=== PATIENT | male | born 1960 | race Caucasian/White ===

== ENCOUNTER → 2017-11-19 | Emergency (ER) | payer MEDICAID ==
[~2017-11-19] VITALS: Ht 175.3 cm; Wt 72.6 kg
[2017-11-19 00:10] VITALS: BP 150/79
[2017-11-19 00:43] LABS: BASOPHILS # (AUTO) 0.1 /CMM (0.0-0.2); BASOPHILS % (AUTO) 0.6 % (0.0-2.0); EOSINOPHILS # (AUTO) 0.1 /CMM (0.0-0.7); EOSINOPHILS % (AUTO) 1.1 % (0.0-6.0); HEMATOCRIT 40 % (39-51); HEMOGLOBIN 13.7 g/dL (13.5-17.5); LYMPHOCYTES # (AUTO) 2.2 /CMM (0.8-4.8); LYMPHOCYTES % (AUTO) 25.6 % (20.0-44.0); MEAN CORPUSCULAR HEMOGLOBIN 30 PG (26.0-33.0); MEAN CORPUSCULAR HGB CONC 34 g/dl (31.0-36.0); MEAN CORPUSCULAR VOLUME 89 fL (80-96); MONOCYTES # (AUTO) 0.8 /CMM (0.1-1.30); MONOCYTES % (AUTO) 8.8 % (2.0-12.0); NEUTROPHILS # (AUTO) 5.5 /CMM (1.8-8.9); NEUTROPHILS % (AUTO) 63.9 % (43.0-81.0); PLATELET COUNT (AUTO) 231 /CMM (150-450); RDW COEFFICIENT OF VARIATION 13.4 (11.5-15.0); RED BLOOD CELL COUNT(AUTO) 4.52 MIL/uL (4.5-6.0); WHITE BLOOD COUNT (AUTO) 8.5 K/uL (4.3-11.0)
[2017-11-19 01:02] LABS: CALCIUM, SERUM 8.8 mg/dL (8.5-10.1)
--- NOTE | 2017-11-19 01:50 | NUR ---
PT WAS DISCHARGED TO THE LOB TO WAIT FOR THE BUSES TO RUN. PT REC'D A SANDWICH, JUICE, AND JELLO. PT AMBULATED TO THE LOB WITH A STEADY GAIT.
== END | disposition home or self-care (01) ==
LOC: ER 00:06
DX: R60.0 Localized edema (principal); Z59.0 Homelessness
CPT/HCPCS: 36415; 80048; 83880; 85025; 99284; A4606; Z7610